=== PATIENT | female | born 1990 | race African-American/Black ===

== ENCOUNTER 2017-04-29 23:11 | Inpatient (IN) | payer OTHER ==
[~2017-04-29 23:11] MED LIST: Fentanyl PCA (Continuous Infusion)* 20 ML PCA SCH
[2017-04-29] MEDS ORDERED: NS 0.9% 1000 ML* 2,000 ML IV ONE (23:26)
[2017-04-29] MEDS ORDERED: Charcoal ACTIVATED* 25 GM/120 ML BTL PO ONE (23:28)
[2017-04-29] MEDS ORDERED: fentaNYL* 50 MCG/ML 2 ML VIAL (100 MCG VIAL) ONE (23:33)
[2017-04-29] MEDS ORDERED: Midazolam concentrated* 5 MG/ML 1 ml VIAL ONE (23:55)
[2017-04-29] MEDS ORDERED: Midazolam* 1 MG/ML 5 ML VIAL (5 MG) SLOW PUSH ONE (23:56)
[2017-04-29] MEDS ORDERED: fentaNYL* 50 MCG/ML 2 ML VIAL (100 MCG VIAL) IV SLOW PU ONE (23:56)
[2017-04-30] MEDS ORDERED: Midazolam* 1 MG/ML 5 ML VIAL (5 MG) SLOW PUSH ONE (00:09)
[2017-04-30] MEDS ORDERED: fentaNYL* 50 MCG/ML 2 ML VIAL (100 MCG VIAL) IV SLOW PU ONE (00:10)
[2017-04-30 00:30] LABS: ABS Basophils 0 10^3/ul (0-0.2); ABS Eosinophils 0.1 10^3/ul (0-0.6); ABS Lymphocytes 1.2 10^3/ul (1.0-4.8); ABS Monocytes 0.3 10^3/ul (0-0.8); ABS Nucleated RBC 0 10^3/ul; Eosinophil % 2.2 % (0-6); Hematocrit 31 % (35-47); Hemoglobin 10.5 g/dl (12.0-16.0); Lymphocyte % 33.8 % (25-47); Mean Corpuscular HGB Conc 34 g/dl (31-36); Mean Corpuscular Hemoglobin 29 pg (27-31); Mean Corpuscular Volume 85 fL (80-97); Mean Platelet Volume 8 um3 (7.4-10.4); Nucleated Red Blood Cells % 0; Platelet Count 177 10^3/ul (150-450); Red Blood Count 3.61 10^6/ul (4.0-5.4); Red Cell Distribution Width 14 % (10.5-15); White Blood Count 3.6 10^3/ul (3.5-10.8)
[2017-04-30] MEDS ORDERED: Glucagon* 1 MG VIAL ONE (00:34)
[2017-04-30] MEDS ORDERED: Glucagon* 1 MG VIAL IV ONE (00:34)
[2017-04-30] MEDS ORDERED: KCL 20 MEQ/100 ML IVPREMIX* 20 MEQ/100 ML BAG IV ONE (00:36)
[2017-04-30] MEDS ORDERED: Ondansetron INJ* 2 MG/ML VIAL IV PRN (01:00)
[2017-04-30] MEDS ORDERED: Docusate CAP* 100 MG PO PRN (01:00)
[2017-04-30] MEDS ORDERED: NS 0.9% 1000 ML* 2,000 ML IV ONE (01:00)
[2017-04-30] MEDS ORDERED: Senna TAB PO PRN (01:00)
[2017-04-30] MEDS ORDERED: Al Hydrox/Mg Hydrox/Simet LIQ* 30 ML UDC PO PRN (01:00)
[2017-04-30] MEDS ORDERED: Midazolam* 1 MG/ML 10 ML VIAL (10 MG) IV PRN (01:47)
[2017-04-30] MEDS ORDERED: Midazolam* 1 MG/ML 10 ML VIAL (10 MG) ONE (01:54)
[2017-04-30] MEDS ORDERED: Etomidate* 2 MG/ML 20 ML VIAL (40 MG) ONE (02:20)
[2017-04-30] MEDS ORDERED: Succinylcholine* 20 MG/ML 10 ML VIAL ONE (02:20)
[2017-04-30] MEDS: KCL premix 10MEQ/50 ML x 2 BAGS IV SCH ×2 (02:33→03:45)
[2017-04-30 03:06] LABS: Urine Appearance Cloudy; Urine Blood Negative (Negative); Urine Color Yellow; Urine Ketones Trace (Negative); Urine Protein 1+(30 mg/dL) (Negative); Urine Urobilinogen Negative (Negative)
--- NOTE | 2017-04-30 03:51 | ED ---
Landy Juarez Thomas, scribed for Ziggy Daly MD on 04/29/17 at 2340 . Complex/Multi-Sys Presentation - HPI Summary HPI Summary: The patient is a 27 year old female brought in by ambulance after she overdosed on Nyquil, Lasix, and Corig. The patient is lethargic, somewhat disoriented. LEVEL FIVE CAVEAT: HPI LIMITED BY AMS - History Of Current Complaint Time Seen by Provider: 04/29/17 23:20 Hx Obtained From: EMS Hx From Patient Unobtainable Due To: Altered Mental Status Associated Signs And Symptoms: Positive: Other - Intentional ingestoin, somewhat disoriented - Allergies/Home Medications Allergies/Adverse Reactions: Allergies Allergy/AdvReac Type Severity Reaction Status Date / Time No Known Allergies Allergy Verified 01/21/17 10:05 PMH/Surg Hx/FS Hx/Imm Hx Opthamlomology History: Denies: Hx Legally Blind EENT History: Denies: Hx Deafness - Surgical History Surgery Procedure, Year, and Place: 2 C-SECTIONS Infectious Disease History: Denies: Traveled Outside the [place] in Last 30 Days - Family History Known Family History: Positive: Unknown - LEVEL FIVE CAVEAT: FHX LIMITED BY AMS - Social History Alcohol Use: Weekly Substance Use Type: Reports: None Smoking Status (MU): Light Every Day Tobacco Smoker Review of Systems - ROS Summary Review of Systems Summary: LEVEL FIVE CAVEAT: ROS LIMITED BY AMS Neurological: Other - Lethargic, somewhat disoriented Positive: Other - Intentional ingestion All Other Systems Reviewed And Are Negative: No Physical Exam - Summary Physical Exam Summary: VITAL SIGNS: Reviewed. GENERAL: Patient is a well-developed and nourished FEMALE who is lying comfortable in the stretcher. Patient is not in any acute respiratory distress. HEAD AND FACE: No signs of trauma. No ecchymosis, hematomas or skull depressions. No sinus tenderness. EYES: PERRLA, EOMI x 2, No injected conjunctiva, no nystagmus. EARS: Hearing grossly intact. Ear canals and tympanic membranes are within normal limits. MOUTH: Oropharynx within normal limits. NECK: Supple, trachea is midline, no adenopathy, no JVD, no carotid bruit, no c- spine tenderness, neck with full ROM. CHEST: Symmetric, no tenderness at palpation LUNGS: Clear to auscultation bilaterally. No wheezing or crackles. CVS: Regular rate and rhythm, S1 and S2 present, no murmurs or gallops appreciated. ABDOMEN: Soft, non-tender. No signs of distention. No rebound no guarding, and no masses palpated. Bowel sounds are normal. EXTREMITIES: FROM in all major joints, no edema, no cyanosis or clubbing. NEURO: The patient is lethargic, somewhat disoriented. SKIN: Dry and warm LEVEL FIVE CAVEAT: PHYSICAL EXAM LIMITED BY AMS Triage Information Reviewed: Yes Vital Signs Reviewed: Yes Procedures - Intubation Time of Intubation: 23:40 - Glideoscope Intubation Method: orotracheal Tube Size (cm): 8.0 Intubation Complications: no complications Diagnostics - Laboratory Result Diagrams: 04/29/17 23:59 04/29/17 23:59 Lab Statement: Any lab studies that have been ordered have been reviewed, and results considered in the medical decision making process. - Radiology CXR Xray Interpretation: No Acute Changes - ET Tube is above the gerard. NG tube is in the stomach. There is no infiltrate. Radiology Interpretation Completed By: ED Physician, Radiologist - EKG 23:43 04/29/17 Cardiac Rate: NL EKG Rhythm: Sinus Rhythm - at 73 BPM EKG Interpretation: Normal axis. Normal interval. No acute ischemic change. Re-Evaluation - Re-Evaluation First Eval Re-Evaluation Time: 23:40 Change: Worse Comment: The patients mental status has not allowed her to take the charcoal. The patient will need to take the charcoal through the NG tube. To protect the airway from aspiration, the patient will be intubated. Complex Multi-Symp Course/Dx Assessment/Plan: The patient is a 27 year old female brought in by ambulance after she overdosed on Nyquil, Lasix, and Corig. The patient is lethargic, somewhat disoriented. The patients mental status has not allowed her to take the charcoal. The patient will need to take the charcoal through the NG tube. To protect the airway from aspiration, the patient will be intubated. I intubated the patient. CXR shows good placement of ET Tube and NG tube. Charcoal was given via NG tube. Bloodwork and urinalysis were obtained. She is admitted to Dr. Alexandra. Condition is critical. 50 minutes of critical care time. - Diagnoses Provider Diagnoses: Overdose - Physician Notifications Discussed Care Of Patient With: Lisette Alexandra Time Discussed With Above Provider: 00:53 Instructed by Provider To: Admit As Inpatient - Critical Care Time Critical Care Time: 30-74 min - 50 minutes. CCT is exclusive of separately billed procedures. Discharge - Discharge Plan Condition: Critical Disposition: ADMITTED TO [facility] Referrals: No Primary Care Phys,NOPCP [Primary Care Provider] - The documentation as recorded by the Landy soriano Thomas accurately reflects the service I personally performed and the decisions made by Addy renteria Abdul, MD.
[2017-04-30] MEDS: NS 0.9% 1000 ML* 1,000 ML IV SCH ×3 (05:05→21:06)
[2017-04-30] MEDS: Heparin VIAL(*) 5000 UNITS/ML VIAL (FIVE THOUSAND) SUBCUT SCH ×3 (05:49→22:21)
[2017-04-30] MEDS: Chlorhexidine MOUTHWASH 0.12%* 15 ML UDC TOPICAL SCH ×2 (05:49→08:53)
[2017-04-30 06:39] LABS: ABS Basophils 0 10^3/ul (0-0.2); ABS Eosinophils 0.1 10^3/ul (0-0.6); ABS Lymphocytes 1.2 10^3/ul (1.0-4.8); ABS Monocytes 0.3 10^3/ul (0-0.8); ABS Neutrophils 2.1 10^3/ul (1.5-7.7); ABS Nucleated RBC 0 10^3/ul; Eosinophil % 3.3 % (0-6); Hematocrit 29 % (35-47); Hemoglobin 9.5 g/dl (12.0-16.0); Lymphocyte % 32.3 % (25-47); Mean Corpuscular HGB Conc 33 g/dl (31-36); Mean Corpuscular Hemoglobin 28 pg (27-31); Mean Corpuscular Volume 86 fL (80-97); Mean Platelet Volume 8 um3 (7.4-10.4); Nucleated Red Blood Cells % 0.1; Platelet Count 184 10^3/ul (150-450); Red Blood Count 3.37 10^6/ul (4.0-5.4); Red Cell Distribution Width 14 % (10.5-15); White Blood Count 3.8 10^3/ul (3.5-10.8)
[2017-04-30 06:45] LABS: INR 0.99 (0.77-1.02)
[2017-04-30 06:57] LABS: EGFR Non-African American 91.3 (>60)
--- NOTE | 2017-04-30 07:52 | RAD ---
HISTORY: Post intubation COMPARISONS: None VIEWS: 1: frontal portable view of the chest at 12:05 AM FINDINGS: LINES AND TUBES: An endotracheal tube is noted with the tip overlying the trachea at the level of the clavicles. A gastric tube is noted, with the tip in the left upper quadrant in a prepyloric position.. CARDIOMEDIASTINAL SILHOUETTE: The cardiomediastinal silhouette is normal for portable technique. PLEURA: The costophrenic angles are sharp. No pleural abnormalities are noted. LUNG PARENCHYMA: The lungs are clear. ABDOMEN: The upper abdomen is clear. There is no subphrenic gas. BONES AND SOFT TISSUES: No bone or soft tissue abnormalities are noted. IMPRESSION: LINES AND TUBES ABOVE. NO ACTIVE CARDIOPULMONARY DISEASE.
--- NOTE | 2017-04-30 08:15 | PN ---
Progress Note - Progress Note Date of Service: 04/30/17 Note: Critical Care Admission Note (H&P) 27 yo female brought to ER ytdy evening after intentional overdose that on initial report included Nyquil, Coreg, and Lasix. A toxicology screen revealed presence of benzodiazepines and cocaine metabolites. Patient was intubated in ER to secure airway in face of deep somnolence. Poison Control was contacted and patient was given a dose of charcoal via NGT. Patient remained hemodynamically stable with heart rates in 60s so did not require a Glucagon infusion. She was referred to overnight hospitalist (DR Alexandra) for admission. She was maintained sedated on the ventilator with a Fentanyl gtt. This AM, despite Fentanyl gtt, patient awakens easily and follows commands. Nurses report minimal urine output overnight. She has been receiving IV fluids through night. Discussed overnight with Dr Alexandra by phone. NKDA PMH unable to obtain at present Soc Hx unable to obtain at present, reportedly was arrested earlier in day ytdy and subsequently released Fam Hx Unable to obtain at present ROS unable to obtain at present SBP 101 HR 69 SpO2 100 FiO2 30 PEEP 5 Skin no diaphoresis Sclerae anicteric NGT in place with charcoal staining Oral ETT in place Lungs with good air entry bilat, no wheezes Cor RRR no rub, no murmur Abd sodt, mild pannus, nontender, bladder not palpable dacosta Ext no edema Neuro sleepy but awakens and follows commands moving all 4 extrems individually WBC 3.8 Hgb 9.5 Plt 184 B-HCG neg K 3.9 BUN/Creat 15/0.77 Alb 3.4 IMP: Acute Metabolic Encephalopathy due to poly-medication overdose....subsiding Acute Respiratory Failure due to above...ready for weaning S/P Suicide attempt Substance abuse disorder suspected Mild anemia Oliguria PLAN: Stop Fentanyl Once awake to move to wean and extubate Continue IVF Check bladder scan Psyche consult 1:1 sitter once awake and extubated Watch UO DVT prophyl Keep HOB raised Discussed with Nursing and Resp Tx Left message for consult with Dr De La Torre (psychiatry) on office voice mail T>35 min, [facility] services rendered
--- NOTE | 2017-04-30 10:32 | CONSULT ---
Consult Consult: Psychiatry attempted to assess this 27 y.o. engaged AA female with a history of affective problems and substance abuse who is currently hospitalized in the ICU secondary to a suicidal OD on Lasix, Coreg and Nyquil. She is somnolent and having some discomfort from her NG tube. Her finance, Tan, is present. Psychiatry will attempt to re-eval tomorrow. Continue 1:1 observations.
--- NOTE | 2017-04-30 12:01 | HP ---
CC: Primary Care Physician HISTORY AND PHYSICAL: DATE OF ADMISSION: 02/27/18 TIME OF EVALUATION: 0100. CHIEF COMPLAINT: Overdose. HISTORY OF PRESENT ILLNESS: This is a 27-year-old female with an unknown history per nursing report. The patient has history of a suicide attempt. My history is obtained from the records and the staf f in the emergency room. Around 10 p.m., the patient took an unknown amount of Coreg, Lasix, and NyQ uil and possibly other substances. Her brother saw her doing this and called EMS. On arrival to the emergency room, the patient vomited and then became very somnolent, unable to protect her airway and she was intubated in the emergency room. The patient was given charcoal and 5 mg of glucagon. She was placed on a fentanyl drip and given Versed as needed and was referred to the hospitalist service for further evaluation. On my encounter, the patient is sedated and intubated. PAST MEDICAL HISTORY: A question of possible suicide attempt in the past. MEDICATIONS: Unknown. FAMILY HISTORY: Unable to obtain. SOCIAL HISTORY: Unknown. REVIEW OF SYSTEMS: Unable to obtain. PHYSICAL EXAMINATION GENERAL: The patient is sedated and intubated. VITAL SIGNS: Temp 98.7, pulse rate 67, respiratory rate 18, oxygen saturation 100% on mechanical francesco tilation, and blood pressure 119/78. HEENT: Head: Normocephalic. Pupils are 1 mm and sluggish, symmetric, anicteric. Oropharynx: Patie nt with ET tube in place. RESPIRATORY: Diminished breath sounds. No wheezes, rhonchi, or rales. CARDIAC: Regular rate and rhythm. No murmurs, rubs, or gallops. ABDOMEN: Hypoactive bowel sounds. Soft, nontender, and nondistended. EXTREMITIES: No cyanosis, clubbing, or edema. +2 DP. NEUROLOGIC: The patient is sedated, unable to follow commands. Prior to arrival, she was moving all extremities. LABORATORY DATA: White count 3.6, hemoglobin 10.5, hematocrit 31. Blood gas; pH of 7.49, pCO2 31, pO2 of 733. Sodium 136, potassium 3.3, chloride 107, bicarb 27, BUN 18, creatinine 1.02, glucose 130 . Beta HCG is less than 0.6. TSH is 1.81, lactic acid is 1. Toxicology negative acetaminophen, alc ohol, and salicylates. RADIOGRAPHIC DATA: Shows normal sinus rhythm with a QTc of 481, QRS of 21, and a MD interval of 195. Chest x-ray, ET tube about 4 cm above the gerard. ASSESSMENT AND PLAN: This is a 27-year-old female with an unknown past medical history, who presents to the emergency room after having toxic ingestion with multiple medications with attempt to harm he rself. 1. Toxic ingestion. Assessment: It appears the patient took Coreg, Lasix, and NyQuil, unable to qu antify how much of them and if there are additional substances she took. It seemed to happen around 10 p.m. last evening. She has been given charcoal, glucagon and now is intubated to protect her airw ay on a fentanyl drip and in the ICU. Our plan is to admit her to the ICU. Continue fentanyl drip. Continue Versed as needed. We will hold off on further glucagon as her heart rate is maintaining in the 80s. We will follow up on her urine tox screen. Poison Control was notified, they recommended f ollowup Tylenol level, repeat an EKG as well in the morning and repeat her labs as well in the [facility]. We will place a social work consult, Psych consult for when she is extubated. We will put her on fluids as well. I did speak with Dr. David, discussing this admission. 2. Fluids, electrolytes, and nutrition. As mentioned n.p.o. with IV fluids. 3. DVT prophylaxis. Moderate risk. We will place her on heparin subcu t.i.d. 4. Code status. Full code. PATIENT TIME: Greater than 60 minutes spent doing the history and physical, more than half the time spent in direct patient contact and critical care time. [id number]/[facility] #: [id number]
[2017-05-01] MEDS: NS 0.9% 1000 ML* 1,000 ML IV SCH (05:25)
[2017-05-01] MEDS: Heparin VIAL(*) 5000 UNITS/ML VIAL (FIVE THOUSAND) SUBCUT SCH ×2 (05:25→13:39)
[2017-05-01 08:00] VITALS: BP 127/60
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
--- NOTE | 2017-05-01 14:44 | DS ---
DATE OF ADMISSION: 04/30/2017. DATE OF DISCHARGE TO THE BEHAVIORAL SCIENCES UNIT: 05/01/2017. ADMITTING PROVIDER: Dr. Lisette Alexandra. ATTENDING INTEGRATED PROGRAM TEACHER: Dr. Mart David. ATTENDING HOSPITALIST: Dr. Jarred Vo. CONSULTING PSYCHIATRIST: Dr. Ernesto De La Torre. CHIEF COMPLAINT: Overdose. PRINCIPAL DIAGNOSIS: Intentional overdose of Coreg, Lasix, NyQuil and over-the - counter sleeping pills. HISTORY OF PRESENT ILLNESS: The patient is a 27-year-old female with a past medical history of two prior suicide attempts, cocaine abuse, and possible frequent alcohol use who presented after her brother observed her taking an unknown amount of Coreg, Lasix, NyQuil and she later attested to have taken approximately 30 pills of an unknown [id number] sleeping pill. The brother called EMS. She vomited and was very somnolent in the ED, and was intubated for respiratory protection. Poison Control was called. She was given charcoal and 5 mg of Glucagon, but did not require Glucagon drip. She was transferred to the ICU on a Fentanyl drip, got one dose of Versed as needed. She was extubated hospital day number two. Toxicology was noted for urine drug screen positive for benzo's and cocaine. Acetaminophen was negative in the blood times twice and negative salicylates. Negative serum alcohol. She had soft blood pressures, low of 88/64. She was evaluated by psychiatric provider, Dr. Ernesto De La Torre, and thought given this being her third suicide attempt, she is at great risk to herself and she was involuntarily admitted via 9.39 order to the Mental Health Unit at [facility]. She later reported that she does not take any home medications. Some history was provided by her ex-fiance and father of two of her sons, Deniz, to Dr. David. She is being discharged hemodynamically stable and no acute medical concerns. DISCHARGE MEDICATIONS: None. DIET: No restrictions. ACTIVITY: No restrictions. FOLLOW-UP: The patient does not have a primary care physician. She will establish care after discharge from the Mental Health Unit. She will be taken care of by Dr. De La Torre while she is on the unit. Time spent on this discharge was 35 minutes. [id number]/[facility] #: [id number] [facility]
== END 2017-05-01 13:58 | DRG 812 ==
LOC: ED 23:11 → ICU 04-30 01:00 → MED 04-30 11:34 → BSU 05-01 12:23 → MED 05-01 12:23
PROVIDERS: ADMIT Psychiatry & Neurology Psychiatry; ATTEND Internal Medicine
PROC: 0BH17EZ Insertion of Endotracheal Airway into Trachea, Via Natural or Artificial Opening (ICD-10-PCS; principal; 2017-04-30)
PROC: 5A1935Z Respiratory Ventilation, Less than 24 Consecutive Hours (ICD-10-PCS; 2017-04-30)
DX: T44.7X2A Poisoning by beta-adrenoreceptor antagonists, intentional self-harm, initial encounter (principal); G92 Toxic encephalopathy; J96.00 Acute respiratory failure, unspecified whether with hypoxia or hypercapnia; R34 Anuria and oliguria; T50.1X2A Poisoning by loop [high-ceiling] diuretics, intentional self-harm, initial encounter; T42.72XA Poisoning by unspecified antiepileptic and sedative-hypnotic drugs, intentional self-harm, initial encounter; T50.992A Poisoning by other drugs, medicaments and biological substances, intentional self-harm, initial encounter; F14.10 Cocaine abuse, uncomplicated; R40.0 Somnolence; R41.0 Disorientation, unspecified; F17.200 Nicotine dependence, unspecified, uncomplicated; D64.9 Anemia, unspecified; F41.9 Anxiety disorder, unspecified; F14.14 Cocaine abuse with cocaine-induced mood disorder; F32.9 Major depressive disorder, single episode, unspecified; Y92.9 Unspecified place or not applicable; Z91.5 Personal history of self-harm; Z72.89 Other problems related to lifestyle; Z88.1 Allergy status to other antibiotic agents; Z81.8 Family history of other mental and behavioral disorders
CPT/HCPCS: 36415; 71045; 80053; 80307; 80320; 80329; 81003; 81015; 82803; 83605; 84443; 84702; 85025; 85610; 87641; 93005; 94002; 94760; 99285; A9270-GY; G0378; G0480; J0330; J1610; J1644; J2250; J3010; J3480

== ENCOUNTER 2017-05-01 14:16 | Inpatient (IN) | payer OTHER ==
[2017-05-01] MEDS ORDERED: Al Hydrox/Mg Hydrox/Simet LIQ* 30 ML UDC PO PRN (16:04)
[2017-05-01] MEDS ORDERED: Acetaminophen TAB* 325 MG PO PRN (16:04)
[2017-05-01] MEDS: Sertraline* 50 MG TAB PO SCH (17:08)
[2017-05-02] MEDS: Sertraline* 50 MG TAB PO SCH (10:57)
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
--- NOTE | 2017-05-02 16:57 | PN ---
MHU: Group Therapy Note - Service Type Service Type: 20248 Group Psychotherapy - Medication Education Group: Patient attended group and presented with flat affect that did not vary with discussion. Although responsive to direct prompts to respond to questions, patient did not engage in spontaneous conversation.
[2017-05-02] MEDS ORDERED: Mouth Piece, Nicotine* 1 EACH CARTRIDGE INH PRN (17:05)
[2017-05-02] MEDS: Nicotine Inhaler* 10 MG AMP INH PRN ×2 (17:38→21:30)
[2017-05-03] MEDS: Sertraline* 50 MG TAB PO SCH (08:21)
[2017-05-03] MEDS: Nicotine GUM* 2 MG PO PRN ×2 (12:49→20:31)
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
[2017-05-03] MEDS: Nicotine Inhaler* 10 MG AMP INH PRN ×2 (16:54→20:31)
[2017-05-04] MEDS: Sertraline* 50 MG TAB PO SCH (08:55)
[2017-05-04] MEDS: Nicotine GUM* 2 MG PO PRN ×3 (12:20→21:11)
[2017-05-04] MEDS: Nicotine Inhaler* 10 MG AMP INH PRN ×3 (12:20→21:10)
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
[2017-05-05] MEDS: Nicotine Inhaler* 10 MG AMP INH PRN (09:11)
[2017-05-05] MEDS: Sertraline* 100 MG TAB PO SCH (09:11)
[2017-05-05] MEDS: Nicotine GUM* 2 MG PO PRN ×2 (09:11→17:44)
[2017-05-06 07:42] VITALS: BP 113/30
[2017-05-06] MEDS: Sertraline* 100 MG TAB PO SCH (09:31)
--- NOTE | 2017-05-06 11:38 | PN ---
MHU: Group Therapy Note - Service Type Service Type: [id number] Group Psychotherapy - Cognitive Behavioral Group Therapy ( CBT):Patient was attentive and participatory in CBT programming this morning, and remained in good behavioral control. Patient expressed positive insights regarding relevant treatment interventions and goals.
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
[2017-05-06] MEDS ORDERED: Mouth Piece, Nicotine* 1 EACH CARTRIDGE ONE (13:44)
[2017-05-06] MEDS: Nicotine Inhaler* 10 MG AMP INH PRN (13:45)
[2017-05-06] MEDS: Nicotine GUM* 2 MG PO PRN ×2 (13:45→22:50)
[2017-05-07] MEDS: Sertraline* 100 MG TAB PO SCH (09:43)
[2017-05-07] MEDS: Nicotine GUM* 2 MG PO PRN (09:44)
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
== END 2017-05-07 12:00 | disposition home or self-care (01) | DRG 774 ==
LOC: BSU 14:39
PROVIDERS: ADMIT Psychiatry & Neurology Psychiatry; ATTEND Psychiatry & Neurology Psychiatry
PROC: GZHZZZZ Group Psychotherapy (ICD-10-PCS; principal; 2017-05-02)
DX: F14.94 Cocaine use, unspecified with cocaine-induced mood disorder (principal); E66.3 Overweight; T44.7X2A Poisoning by beta-adrenoreceptor antagonists, intentional self-harm, initial encounter; T50.1X2A Poisoning by loop [high-ceiling] diuretics, intentional self-harm, initial encounter; F32.9 Major depressive disorder, single episode, unspecified; F41.9 Anxiety disorder, unspecified; Z62.810 Personal history of physical and sexual abuse in childhood; Y92.009 Unspecified place in unspecified non-institutional (private) residence as the place of occurrence of the external cause; Z72.89 Other problems related to lifestyle; Z68.23 Body mass index [BMI] 23.0-23.9, adult; Z88.8 Allergy status to other drugs, medicaments and biological substances
CPT/HCPCS: 90853; 99222; 99231; 99232; 99233; 99238; A9270-GY